=== PATIENT | female | born 1990 | race Caucasian/White ===

== ENCOUNTER 2018-04-15 17:34 | Emergency (ER) | payer BC ==
--- OUTSIDE RECORDS SUMMARY | 2018-04-15 18:19 | XMS REPORT ---
:1990 External Reference #:[id number] Author Organization [employer] Address [address] [place] [address] Phone [phone] Care Team Providers Name Role Phone Ifrah Burton Care Team Information Closing Coordinator Unavailable Ifrah Burton Primary Care Physician Unavailable Payers Type Date Identification Numbers Payment Provider Subscriber Commercial Policy Number: [id number] BS SERENA Shyann Soto PayID: [id number] [address] [address] [place] [address] Health Maintenance Policy Number: [facility] [employer] ([facility] – [place]) [id number] PayID: [id number] [address] [place] [address] Problems Description No Information Family History Date Family Member(s) Problem(s) Comments Mother Asthma And Allergies First Sister Asthma And Allergies Social History Type Date Description Comments Cigarette Use Never Smoked Cigarettes ETOH Use Rare Use Of Alcohol Recreational Drug Use Never Used Drugs Allergies, Adverse Reactions, Alerts Date Description Reaction Status Severity Comments 03/10/2016 Penicillin active 05/02/2008 NKDA inactive Medications Medication Date Status Form Strength Qnty SIG Indications Ordering Provider Active Tablets Unknown No Active 03/10/2016 Hx Unknown Medications - 04/12/2018 Lutera Hx Tablets Unknown - 03/09/2016 Vital Signs Date Vital Result Comment 04/12/2018 Weight 148.00 lb Height 65.25 inches 5'5.25" BMI (Body Mass Index) 24.4 kg/m2 BP Systolic 138 mmHg BP Diastolic 87 mmHg Heart Rate 50 /min O2 % BldC Oximetry 99 % Body Temperature 98.2 F Pain Level 0 03/10/2016 Weight 145.00 lb Height 65.25 inches 5'5.25" BMI (Body Mass Index) 23.9 kg/m2 BP Systolic 102 mmHg BP Diastolic 62 mmHg Heart Rate 51 /min O2 % BldC Oximetry 100 % Body Temperature 98.2 F 05/02/2008 Weight 144.00 lb Height 65.25 inches 5'5.25" BMI (Body Mass Index) 23.8 kg/m2 Body Temperature 99.0 F Results Description No Information Procedures Date CPT Code Description Status 03/28/2016 79938 Ultrasonic Guide Needle Biopsy Completed 03/28/2016 53994 Fna W/Image Completed Encounters Type Date Location Provider CPT E/M Office Visit 03/10/2016 4:45p Main Office Armando Kovacs M.D. [id number] Office Visit 05/02/2008 3:45p Main Office Armando Kovacs M.D. [id number]
[2018-04-15 18:26] VITALS: BP 121/60
[2018-04-15] MEDS ORDERED: Cephalexin CAP* 500 MG PO ONE (18:54)
--- NOTE | 2018-04-15 19:00 | UC ---
Throat Pain/Nasal Sergio HPI - HPI Summary HPI Summary: Patient with recurrent sore throat today. She denies chills or fever. States that a month ago she had a diagnosis of strep throat. She is allergic to penicillin so she took the full 10 day course of cephalexin twice a day. She is breast-feeding her 8 week old infant. She states that the medication was effective in controlling the symptoms, but they recurred today. Both patient and her tolerated the treatment well. She denies developing any side effects including diarrhea or rash. - History of Current Complaint Chief Complaint: UCGeneralIllness Stated Complaint: SORE THROAT Time Seen by Provider: 04/15/18 18:21 Hx Obtained From: Patient Hx Last Menstrual Period: HAD A BABY 8 WEEKS AGO ?: No Onset/Duration: Sudden Onset, Lasting Hours Severity: Moderate Pain Intensity: 3 Cough: None Associated Signs & Symptoms: Positive: Negative - Epiglottits Risk Factors Epiglottis Risk Factors: Negative - Allergies/Home Medications Allergies/Adverse Reactions: Allergies Allergy/AdvReac Type Severity Reaction Status Date / Time Penicillins Allergy Hives Verified 04/15/18 18:26 Home Medications: Home Medications Fluconazole [Diflucan 100 mg tab] 100 mg PO DAILY 04/15/18 [History Confirmed ] 105/Iron/Folic AC/Dha [Vitatrue Combo Pack] 1 each PO DAILY 04/15/18 [ History Confirmed 04/15/18] PMH/Surg Hx/FS Hx/Imm Hx Previously Healthy: Yes - Surgical History Surgical History: Yes Surgery Procedure, Year, and Place: LT ELBOW SURGERY - Family History Known Family History: Positive: None Family History: no cardiovascular issues in patient lineage - Social History Alcohol Use: None Substance Use Type: None Smoking Status (MU): Never Smoked Tobacco Review of Systems ENT: Sore Throat All Other Systems Reviewed And Are Negative: Yes Physical Exam Triage Information Reviewed: Yes Appearance: Well-Appearing, No Pain Distress, Well-Nourished Vital Signs: Initial Vital Signs Temp 98.0 F 04/15/18 18:22 Pulse 60 04/15/18 18:22 Resp 22 04/15/18 18:22 BP 121/60 04/15/18 18:22 Pulse Ox 100 04/15/18 18:22 Vital Signs Reviewed: Yes Eyes: Positive: Conjunctiva Clear ENT: Positive: Hearing grossly normal, Pharyngeal erythema, TMs normal, Uvula midline Neck: Positive: Supple, Nontender, No Lymphadenopathy Respiratory: Positive: Chest non-tender, Lungs clear, Normal breath sounds, No respiratory distress Cardiovascular: Positive: RRR, No Murmur, Pulses Normal, Brisk Capillary Refill Throat Pain/Nasal Course/Dx - Course Course Of Treatment: Patient was positive for strep throat on the rapid test. Instructed to restart another course of Keflex 500 mg 3 times a day for 10 days. We'll await results of the throat culture for sensitivity - Differential Dx/Diagnosis Provider Diagnoses: Streptococcal pharyngitis Discharge - Sign-Out/Discharge Documenting (check all that apply): Patient Departure All imaging exams completed and their final reports reviewed: No Studies - Discharge Plan Condition: Stable Disposition: HOME Prescriptions: Cephalexin CAP* [Keflex 500 CAP*] 500 mg PO TID 10 Days #30 cap Patient Education Materials: Strep Throat (DC), Cephalexin (By mouth) Referrals: Brittny Carbajal [Primary Care Provider] - - Billing Disposition and Condition Condition: STABLE Disposition: Home
--- NOTE | 2018-04-17 13:18 | UC ---
- Progress Note Progress Note: prelim throat culture: positive for gp A strep, sensitivity pending . Patient on keflex. No change Discharge - Sign-Out/Discharge Documenting (check all that apply): Post-Discharge Follow Up All imaging exams completed and their final reports reviewed: No Studies - Discharge Plan Condition: Stable Disposition: HOME Prescriptions: Cephalexin CAP* [Keflex 500 CAP*] 500 mg PO TID 10 Days #30 cap Patient Education Materials: Cephalexin (By mouth), Strep Throat (DC) Referrals: Brittny Carbajal [Primary Care Provider] - - Billing Disposition and Condition Condition: STABLE Disposition: Home
== END 2018-04-15 19:04 | disposition home or self-care (01) ==
LOC: UCCORT 17:34
DX: J02.0 Streptococcal pharyngitis (principal)
CPT/HCPCS: 87070; 87077; 87651; 99212; G0463